=== PATIENT | female | born 1990 | race Caucasian/White ===

== ENCOUNTER 2022-06-10 10:03 | Emergency (ER) | payer BC, SELFPAY ==
[2022-06-10 10:06] VITALS: BP 145/91; PULSE 101; RESP 16; TEMP 37.1; O2SAT 99; BMI 18.8
--- NOTE | 2022-06-10 11:13 | ED_ITS ---
HPI - General Adult General Chief complaint: Skin/Abscess/Foreign Body Stated complaint: Abscess? Time Seen by Provider: 06/10/22 10:15 History of Present Illness HPI narrative: Patient complains of mildly painful lump in the rectal area that has developed over the last several days, no bleeding, it does itch, no nausea no vomiting no diarrhea no constipation no fever Related Data Previous Rx's Medication Instructions Recorded dibucaine 1 % topical ointment 1 appl topical QID PRN hemorrhoids 06/10/22 (Hemorrhoidal-Analgesic) #28 grams docusate sodium 100 mg capsule 100 mg PO BID PRN Stool softener 06/10/22 (Colace) #14 caps hydrocortisone 2.5 % topical cream 1 appl topical BID PRN itching #20 06/10/22 grams Allergies Allergy/AdvReac Type Severity Reaction Status Date / Time No Known Allergies Allergy Verified 06/10/22 10:09 [facility] Past Medical History Source: nursing notes reviewed Social History Social History Advance Directives: No Advance Directives Information Provided: No Physical Exam ED Vital Signs: Vital Signs - 24 hr 06/10/22 10:06 Temperature 98.7 F Pulse Rate 101 H Respiratory Rate 16 Blood Pressure 145/91 H Pulse Oximetry 99 Oxygen Delivery Method Room Air BMI result Body Mass Index 18.8 General appearance comfortable no distress The neck is supple Respiratory no distress Abdomen nontender Rectal exam external exam there is a swollen pinkish hemorrhoid, it is not black or purple there is no bleeding, there is no other swelling or tender area no ab scess Skin no rash Course Course Course Narrative: Patient with uncomfortable but not significantly painful swollen hemorrhoid is discharged with symptomatic treatment Discharge Plan Discharge Clinical Impression: Hemorrhoid Patient Disposition: Home, Self-Care Additional Instructions: You have a swollen external hemorrhoid, warm soaks in warm bath often help improve this Use ointments as prescribed, you can also get preparation H [id number] Use stool softener A follow with surgeon if needed but this usually gets better on its own in several days Return any time any worse condition or any concerns Prescriptions: New dibucaine [Hemorrhoidal-Analgesic] 1 % ointment 1 appl topical QID PRN (Reason: hemorrhoids) Qty: 28 0RF hydrocortisone 2.5 % cream 1 appl topical BID PRN (Reason: itching) Qty: 20 0RF docusate sodium [Colace] 100 mg capsule 100 mg PO BID PRN (Reason: Stool softener) Qty: 14 0RF Referrals: Maximino Pedersen MD [Physician] - (Hemorrhoids)
== END 2022-06-10 11:21 | disposition home or self-care (01) ==
PROVIDERS: Emergency Provider Emergency Medicine
DX: K64.9 Unspecified hemorrhoids (principal)
CPT/HCPCS: 99282; 99283

== ENCOUNTER 2024-10-30 07:24 | Outpatient (REF) | payer BC, SELFPAY ==
[2024-10-30 10:21] LABS: Appearance Urine Cloudy; Glucose Urine UA Negative (Negative); PH 5.5 (5.0-9.0); Specific Gravity - Urine 1.020 (1.005-1.025); UMIC TRIGGER UACC YES
[2024-10-30 10:22] LABS: MANUAL DIFF FLAG NO
[2024-10-30 10:34] LABS: Hematocrit 36.4 % (37.0-47.0); Hemoglobin 12.4 g/dl (12.0-16.0); Imm Gran Abs Auto 0.02 X10*3/uL (0.00-0.03); Imm Gran Pct Auto 0.3 % (0.0-0.4); Lymphocytes Absolute Auto 1.5 X10*3/uL (1.2-4.9); Mean Corpuscular HGB Conc 34.1 g/dl (31.0-35.0); Mean Corpuscular Hemoglobin 30.3 pg (27.0-33.0); Mean Corpuscular Volume 89.0 fL (80.0-98.0); NRBC Abs Auto 0.000 X10*3/uL (0.0-0.012); NRBC Pct Auto 0.0 /100WBC (0.0-0.2); Platelet Count 226 X10*3/uL (160-400); Red Blood Count 4.09 X10*6/uL (4.20-5.50); White Blood Count 6.2 X10*3/uL (4.8-10.8)
[2024-10-30 10:39] LABS: UACC Culture Trigger YES
[2024-10-30 10:52] LABS: Hemoglobin A1C 104.9077 umol/L; Total Hemoglobin (HGBA1C) 3337.2741 umol/L
[2024-10-30 11:16] LABS: Alanine Aminotransferase 92 U/L (0-31); Albumin Level 4.7 g/dL (3.5-5.0); Alkaline Phosphatase 70 U/L (39-117); Anion Gap 11 (12-20); Aspartate Amino Transferase 76 U/L (5-31); Blood Urea Nitrogen 11 mg/dL (9-16); Calcium 9.3 mg/dL (8.4-10.2); Carbon Dioxide 27 mmol/L (22-29); Chloride 103 mmol/L (96-108); Cholesterol 213 mg/dL (<200); Estimated Glomerular Filt Rate > 60; HDL Cholesterol 90 mg/dL (>40); Magnesium 1.8 mg/dL (1.6-2.6); Potassium 3.9 mmol/L (3.3-5.1); Sodium 137 mmol/L (135-145); Total Protein 7.5 g/dL (6.5-8.0); Triglycerides 115 mg/dL (<150)
[2024-10-30 11:32] LABS: Folate 11.2 ng/mL (> or = 4.0); Vitamin B12 484 pg/mL (200-900)
[2024-10-31 15:08] LABS: Lyme Abs Screen <0.90 index
== END 2024-10-30 07:25 | disposition home or self-care (01) ==
LOC: HO.HMGCLDS 07:24
PROVIDERS: PCP Physician Assistant Medical; Visit Provider Physician Assistant Medical
DX: Z00.00 Encounter for general adult medical examination without abnormal findings (principal); Z13.1 Encounter for screening for diabetes mellitus; Z13.220 Encounter for screening for lipoid disorders
CPT/HCPCS: 36415; 80053; 80061; 80076; 81001; 82248; 82306; 82607; 82746; 83036; 83735; 84443; 85025; 86140; 86617; 86618; 87086

== ENCOUNTER 2024-12-05 14:58 | Outpatient (AMB) | payer BC, SELFPAY ==
--- NOTE | 2024-12-05 15:07 | A.OFFPC_ITS ---
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 Blood Bank Required: No Accompanied by: Self / Same As Patient Allergies No Known Allergies Allergy (Verified 12/05/24 15:29) Medication List - Last Reconciled 12/05/24 by Iesha Villegas PA-C No Known Home Meds Tobacco use date assessed: 12/05/24 Dental Screening Dental Screen Date: 12/05/24 Did you have a dental visit in the last 12 months?: No Did you have a dental problem in the last 6 months where you did not have access to dental care?: No Was dental information given to patient?: Patient has dentist HPI Establish Care HPI Details The patient is a 34-year-old female presenting for a physical examination and evaluation of abdominal pain. The abdominal pain began recently and was described as a pinching sensation, with associated nausea and pressure-like discomfort. The pain has since resolved, and the patient is unsure if it was due to stress or a viral infection. The patient has a history of anemia, noted during blood work on October 30, 2024, with a hemoglobin level of 4.09 g/dL, which was slightly below the normal range. The anemia was suspected to be related to menstruation, and subsequent tests showed normal levels. The patient was found to have elevated liver enzymes, with levels of 76 and 92, prompting further investigation into potential causes such as gallbladder or pancreatic issues. An abdominal ultrasound was recommended to rule out gallstones or other abnormalities. The patient has a family history of breast cancer in her mother, diagnosed at age 38, and colon cancer in her grandfather. Preventative measures include referrals for a mammogram and colonoscopy due to this family history. Social History - Family status: Patient is the daughter of Shalini Simpson, who has a history of breast cancer. - Exercise: Patient engages in activitie s such as golfing. [facility] Medical History (Updated 12/05/24 @ 16:35 by Iesha Villegas PA-C) Preventative health care Pure hypercholesterolemia, unspecified Annual physical exam Left cervical lymphadenopathy Family history of colon cancer Family history of breast cancer in mother Elevated liver enzymes Abdominal pain General medical exam Family History Father BP (high blood pressure) Mother No problems noted. Social History Housing: Condominium Alcohol intake: current Alcohol intake frequency: a few times a week Patient Tobacco Use Status: Current someday Tobacco user service: No Current occupational status: employed Cognitive needs: No Hearing needs: No Vision needs: Yes (reading glasses) Questionnaire PHQ-9 Over the last 2 weeks, how often have you been bothered by any of the following problems? 1. Little interest or pleasure in doing things: not at all 2. Feeling down, depressed, or hopeless: not at all 3. Trouble falling or staying asleep, or sleeping too much: not at all 4. Feeling tired or having little energy: not at all 5. Poor appetite or overeating: not at all 6. Feeling bad about yourself - or that you are a failure or have let yourself or your family down: not at all 7. Trouble concentrating on things, such as reading the newspaper or watching television: not at all 8. Moving or speaking so slowly that other people could have noticed. Or the opposite - being so fidgety or restless that you have been moving around a lot more than usual: not at all 9. Thoughts that you would be better off or of hurting yourself in some way: not at all Total score: 0 Depression Screening Interpretation: Negative Depression Screening Done: Yes 97496 - PHQ-9 Billing: Yes Source: Developed by Drs. Sang Rossi, Flower Beyer, Neymar Coats and colleagues, with an educational odalys from [employer]. Thrive Questionnaire Date Thrive assessed: 12/05/24 I am a: Patient What is your living situation today?: I have a steady place to live Within the past 12 months, did the food you bought not last and you didn't have the money to get more?: Never true Within the past 12 months, did you worry whether your food would run out before you got money to buy more?: Never true Do you have trouble paying for medicines?: No Do you have trouble getting transportation to medical appointments?: No Do you have trouble paying your heating and electricity bill?: No Do you have trouble taking care of your child, family member or friend?: No Do you have trouble with day-to-day activities such as bathing, preparing meals, shopping, managing finances, etc.?: No Are you currently unemployed and looking for a job?: No Are you interested in more education?: No Please select the resources that you would like help with: None THRIVE Score: 0 AUDIT C Alcohol Use Questionnaire (AUDIT-C) 1. How often do you have a drink containing alcohol?: 2-3 times a week 2. How many drinks containing alcohol do you have on a typical day when you are drinking?: 1 or 2 3. How often do you have six or more drinks on one occasion?: Never Total Score: 3 Score Reviewed/Action Taken: No CRISTOBAL-7 AMB Questionnaire CRISTOBAL-7 Date CRISTOBAL - 7 assessed: 12/05/24 Feeling nervous, anxious, or on edge: 0 = Not at all Not being able to stop or control worryin = Not at all Worrying too much about different things: 0 = Not at all Trouble relaxin = Not at all Being so restless that it is hard to sit still: 0 = Not at all Becoming easily annoyed or irritable: 0 = Not at all Feeling afraid as if something awful might happen: 0 = Not at all Total CRISTOBAL-7 score (0-4 normal; 5-9 mild; 10-14 moderate; 15-21 severe): 0 Source: Developed by Drs. Sang Rossi, Flower Beyer, Neymar Coats and colleagues, with an educational odalys from [employer]. CRISTOBAL-7 Assessment Billing CRISTOBAL-7 Assessment Tool: CRISTOBAL-7 Assessment 28612 Review of Systems Const Details: - Gastrointestinal: Denies current abdominal pain, nausea, or changes in bowel habits. - Cardiovascular: Denies chest pain or palpitations. - Respiratory: Denies dyspnea or cough. - Neurological: Denies dizziness or headaches. - Genitourinary: Denies dysuria or hematuria. - Musculoskeletal: Reports soreness after golfing. - Dermatological: Denies rashes. All systems reviewed & are unremarkable except as noted in HPI and below Physical exam (Primary Care) Vital Signs: Last Vital Signs Temp 98.1 F 12/05/24 15:13 Pulse 72 12/05/24 15:13 Resp 14 12/05/24 15:13 BP 127/84 12/05/24 15:13 Pulse Ox 99 12/05/24 15:13 Oxygen Delivery Method Room Air 12/05/24 15:13 Care Plan Goal for BP management: <140/90 at Goal BMI result Body Mass Index 19.7 Normal BMI Tobacco/Smoking Status: Tobacco use Status Tobacco use date assessed 12/05/24 12/05/24 15:09 Patient Tobacco Use Status Current someday Tobacco 12/05/24 15:19 PHQ-9: PHQ-9 Score PHQ-9: Total score 0 12/05/24 15:19 Depression Screening Interpretation: Negative Thrive Assessment: Date of Thrive Assessment Date Thrive assessed 12/05/24 12/05/24 15:09 Const Other: Appearance: Alert. Oriented X3. No acute distress. Head: Normal external exam. Normocephalic. Atraumatic. Eyes: Pupils are equal, round, and reactive to light. Extraocular movements intact. Conjunctiva and sclera normal. Eyelids normal. Ears: External auditory canal normal. Tympanic membranes normal. Throat: Pharynx normal. Uvula midline. Moist mucous membranes. Neck: Normal inspection. Neck supple. Full range of motion. No adenopathy. Thyroid Normal. No meningeal signs. Single enlarged lymph node noted on the left side; ultrasound of left cervical lymphadenopathy ordered. Cardiovascular: Normal heart rate and rhythm. Heart sound normal. No murmurs noted. Pulses normal throughout. Respiratory: No respiratory distress. Painless inspiration. Breath sounds normal. No wheezes/rales/rhonchi noted. Chest nontender. No accessory muscle usage noted or decreased air movement noted. Abdomen: Soft and nontender. Bowel sounds normal in all 4 quadrants. No distention noted. No organomegaly noted. No visible injury noted. Back: No costovertebral angle tenderness. Full range of motion noted. Skin: Skin warm and dry. Normal skin color. Normal skin turgor. No rashes/lesions/lacerations noted. Extremities: No lower extremity edema. Extremities exhibit normal range of motion. Extremities nontender. Neuro: Oriented X 3. No motor deficit. No sensory deficit. Reflexes normal. Results Reviewed Results Reviewed: - Labs: Hemoglobin 4.09 g/dL (October 30, 2024), elevated liver enzymes (76 and 92), fasting glucose 104 mg/dL, hemoglobin A1c 5.0%. - Imaging: Abdominal ultrasound ordered to evaluate liver and gallbladder. Coding Level of Care Code New Pt Level 4 (86492) New Pt Prev Care 18-39yr(66792 Diagnoses Annual physical exam Z00.00 Abdominal pain R10.9 Elevated liver enzymes R74.8 Pure hypercholesterolemia, unspecified E78.00 Left cervical lymphadenopathy R59.0 Preventative health care Z00.00 Family history of colon cancer Z80.0 Family history of breast cancer in mother Z80.3 Additional Codes PHQ-9 - 93336 - PHQ-9 Billing: Yes ([id number]) CRISTOBAL-7 Assessment Billing - CRISTOBAL-7 Assessment Tool: CRISTOBAL-7 Assessment 74197 ([id number]) Assessment & Plan Assessment & Plan (1) Annual physical exam: Code(s): Z00.00 - Encounter for general adult medical examination without abnormal findings Category: Medical (2) Abdominal pain: Code(s): R10.9 - Unspecified abdominal pain Category: Medical Plan: The patient reported recent abdominal pain described as a pinching sensation, which has since resolved. An abdominal ultrasound has been ordered to evaluate for potential gallbladder or pancreatic issues, given the elevated liver enzymes . (3) Elevated liver enzymes: Code(s): R74.8 - Abnormal levels of other serum enzymes Category: Medical Plan: The patient has elevated liver enzymes, with levels of 76 and 92. An abdominal ultrasound is planned to assess for gallstones or other hepatic issues. Repeat liver function tests will be conducted to monitor enzyme levels. The patient has elevated liver enzymes, with levels of 76 and 92. An abdominal ultrasound is planned to assess for gallstones or other hepatic issues. Repeat liver function tests will be conducted to monitor enzyme levels. (4) Pure hypercholesterolemia, unspecified: Code(s): E78.00 - Pure hypercholesterolemia, unspecified Category: Medical Plan: The patient's cholesterol levels are slightly elevated. Lifestyle modifications are recommended, but no pharmacological intervention is planned at this time due to the patient's young age and overall health. (5) Left cervical lymphadenopathy: Code(s): R59.0 - Localized enlarged lymph nodes Category: Medical Plan: The patient has a single enlarged cervical lymph node. An ultrasound of the lymph node is ordered to further evaluate the cause of the enlargement. (6) Preventative health care: Code(s): Z00.00 - Encounter for general adult medical examination without abnormal findings Category: Medical Plan: Due to the family history of breast cancer, a mammogram referral has been made to assess for early detection and prevention. A referral for a colonoscopy has been made due to the family history of colon cancer, aiming for early detection and prevention. (7) Family history of colon cancer: Code(s): Z80.0 - Family history of malignant neoplasm of digestive organs Category: Medical Plan: A referral for a colonoscopy has been made due to the family history of colon cancer, aiming for early detection and prevention. (8) Family history of breast cancer in mother: Code(s): Z80.3 - Family history of malignant neoplasm of breast Category: Medical Plan: Due to the family history of breast cancer, a mammogram referral has been made to assess for early detection and prevention. Plan Plan Patient was informed and verbally consented to the use of an ambient scribe for clinic note documentation during this visit. 1. Abdominal Pain The patient reported recent abdominal pain described as a pinching sensation, which has since resolved. An abdominal ultrasound has been ordered to evaluate for potential gallbladder or pancreatic issues, given the elevated liver enzymes. 2. Anemia The patient was previously noted to have anemia with a hemoglobin level of 4.09 g/dL, likely related to menstruation. Follow-up labs showed normalization, and no further immediate action is required. 3. Elevated Liver Enzymes The patient has elevated liver enzymes, with levels of 76 and 92. An abdominal ultrasound is planned to assess for gallstones or other hepatic issues. Repeat liver function tests will be conducted to monitor enzyme levels. 4. Hypercholesterolemia The patient's cholesterol levels are slightly elevated. Lifestyle modifications are recommended, but no pharmacological intervention is planned at this time due to the patient's young age and overall health. 5. Lymphadenopathy The patient has a single enlarged cervical lymph node. An ultrasound of the lymph node is ordered to further evaluate the cause of the enlargement. 6. Preventative Care: Mammogram Referral Due To Family History Of Breast Cancer Due to the family history of breast cancer, a mammogram referral has been made to assess for early detection and prevention. 7. Preventative Care: Colonoscopy Referral Due To Family History Of Colon Cancer A referral for a colonoscopy has been made due to the family history of colon cancer, aiming for early detection and prevention. During the visit, I discussed with the patient the importance of monitoring her liver enzyme levels and the potential need for an abdominal ultrasound to rule out gallstones or other issues. We also talked about her slightly elevated cholesterol levels and the decision to focus on lifestyle modifications rather than medication at this time. I emphasized the significance of preventative care, given her family history of breast and colon cancer, and arranged referrals for a mammogram and colonoscopy. We agreed on a follow-up in three months to reassess her condition and review any new findings. Orders: Orders Complete Blood Count no Diff Today Z00.00 - Encounter for general adult medical examination without abnormal findings Amylase Today R10.9 - Unspecified abdominal pain, R74.8 - Abnormal levels of other serum enzymes UA CC w/rflx Micro + Cult Today R10.9 - Unspecified abdominal pain, R74.8 - Abnormal levels of other serum enzymes Hepatitis A,B,C Profile Today R10.9 - Unspecified abdominal pain, R74.8 - Abnormal levels of other serum enzymes US soft tiss head and/or neck Today R59.0 - Localized enlarged lymph nodes US abdomen complete Today R10.9 - Unspecified abdominal pain, R74.8 - Abnormal levels of other serum enzymes Comprehensive Met. Panel Today Z00.00 - Encounter for general adult medical examination without abnormal findings Liver Panel Today Z00.00 - Encounter for general adult medical examination without abnormal findings Lipase Today R10.9 - Unspecified abdominal pain, R74.8 - Abnormal levels of other serum enzymes MM screening mammo BI Today Z12.31 - Encounter for screening mammogram for malignant neoplasm of breast, Z80.3 - Family history of malignant neoplasm of breast Referrals Gastroenterology Referral Z12.11 - Encounter for screening for malignant neoplasm of colon, Z80.0 - Family history of malignant neoplasm of digestive organs Medications: Discontinued hydrocortisone 2.5% Discontinued Reason: Patient no longer taking 1 appl topical BID PRN 20 grams 0RF itching dibucaine 1% (Hemorrhoidal-Analgesic) Discontinued Reason: Patient no longer taking 1 appl topical QID PRN 28 grams 0RF hemorrhoids docusate sodium (Colace) Discontinued Reason: Patient no longer taking 100 mg PO BID PRN 14 caps 0RF Stool softener Patient Instructions: - Schedule and complete the abdominal ultrasound as ordered. - Follow up on the mammogram and colonoscopy referrals. - Maintain a healthy lifestyle to manage cholesterol levels. - Return for a follow-up appointment in three months.
[2024-12-05 15:13] VITALS: BP 127/84; PULSE 72; RESP 14; TEMP 36.7; O2SAT 99; BMI 19.7
--- OUTSIDE RECORDS SUMMARY | 2024-12-05 17:24 | XMS_ITS | Clinical Summary ---
Author Organization [facility] Address [address] [place] [address] [place] [id number] Phone Care Team Providers Care Pie Topper Name Role Phone Unknown, Unknown Primary Care Provider Unavai lable Allergies No known active allergies Medications hydrocortisone 2.5 % creamIndications :Rash and other nonspecific skin eruption Apply topically 2 (two) times a day. 28 g Active Active Problems No known active problems Immunizations Immunization Administration Dates Next Due COVID-19 (Pre-01/18) Moderna Vaccine, mRNA, PF 0 08/22/2020,07/25/2020 Social History Tobacco Use Types Packs/Day Years Used Date Smoking Tobacco: Never Assessed Education Answer Date Recorded Are you interested in more education? Not on meena e 07/26/2022 Are you concerned about learning? Not on file 07/26/2022 No 07/26/2022 No 07/26/2022 Digital Access Answer Date Recorded No 08/23/2022 No 08/23/2022 Reliable internet access at home? Not on file 08/23/2022 Device with a working camera? Not on file Comments Unknown Sex and Gender Information Value Date Recorded Sex Assigned at Female 11/10/2019 9:20 AM EDT Legal Sex Female 5:19 PM EST Gender Identity Female 11/10/2019 9:20 AM EDT Sexual Orientation Straight 11/10/2019 9: 20 AM EDT Plan of Treatment Health Maintenance Due Date Last Done Comments DEPRESSION SCREENING 2000 SMOKING Hx and SMOKELESS TOBACCO SCREENING 2001 HEPATITIS C SCREENING 2006 HIV ONE-TIME SCREENING (18-6 5 YEARS) 2006 PAP SMEAR 2009 Adult Td,Tdap Booster 07/13/2023 07/12/2013 , 10/28/1999 COVID-19 VACCINE (2023-2 5 season) 2023 08/22/2020, 07/25/2020 HIB VACCINES Completed 10/27/1989 MENINGOCOCCAL VACCINES (ACWY) Completed 09/22/2006 HEPATITIS A VACCINES Aged Out No long er eligible based on patient's age to complete this topic MENINGOCOCCAL VACCINES (B) Aged Out N o longer eligible based on patient's age to complete this topic PNEUMOCOCCAL VACCINES (0-49 years) Aged Out No longer eligible b ased on patient's age to complete this topic Medical Devices Not on file Insurance * Guarantor: Guillermina Stevens Account Type Relation to Patient Date of Phone Billing Address Personal/Family Self [address] [facility] * Guarantor: Guillermina Stevens Account Type Relation to Patient Date of Phone Billing Address Personal/Family Self [address] [place] [address] [facility] PPO EPO ([place]) [address] [facility] PPO EPO * Guarantor: Javedtawana Guillermina Account Type Relation to Patient Date of Phone Billing Address Personal/Family Self [address] [place], [place] [id number] [place] [address] [facility] PPO EPO * Guarantor: Davian Stevensra Account Type Relation to Patient Date of Phone Billing Address Personal/Family Self 1990 [address] [place], [place] [id number] [place] [address] [facility] PPO EPO * Guarantor: Guillermina Stevens Account Type Relation to Patient Date of Phone Billing Address Personal/Family Self [address] [place] [address] [facility] PPO EPO * Guarantor: Guillermina Stevens Account Type Relation to Patient Date of Phone Billing Address Personal/Family Self [address] [place] [address] [facility] PPO EPO * Guarantor: Guillermina Stevens Account Type Relation to Patient Date of Phone Billing Address Personal/Family Self [address] [facility] PPO EPO * Guarantor: Guillermina Stevens Account Type Relation to Patient Date of Phone Billing Address Personal/Family Self [address] [place], [place] [facility] PPO EPO Care Teams Pie Topper Relationship Specialty Start Date End Date Unknown, Unknown, PCP - General 01/29/17 Additional Source Comments The information contained in this document represents components of the legal health record. It is not the complete legal health record.[facility]
== END 2024-12-05 15:48 | disposition home or self-care (01) ==
LOC: HO.HMCSH 14:58
PROVIDERS: PCP Physician Assistant Medical; Visit Provider Physician Assistant Medical
DX: Z00.00 Encounter for general adult medical examination without abnormal findings (principal); R10.9 Unspecified abdominal pain; R74.8 Abnormal levels of other serum enzymes; E78.00 Pure hypercholesterolemia, unspecified; R59.0 Localized enlarged lymph nodes; Z80.0 Family history of malignant neoplasm of digestive organs; Z80.3 Family history of malignant neoplasm of breast

== ENCOUNTER → 2024-12-05 14:58 | Outpatient (BNVA) | payer BC, SELFPAY | PROVIDERS: PCP Physician Assistant Medical; Visit Provider Physician Assistant Medical | DX: Z00.00 Encounter for general adult medical examination without abnormal findings (principal); R10.9 Unspecified abdominal pain; D64.9 Anemia, unspecified; R74.8 Abnormal levels of other serum enzymes; E78.00 Pure hypercholesterolemia, unspecified; R59.0 Localized enlarged lymph nodes; Z80.0 Family history of malignant neoplasm of digestive organs; Z80.3 Family history of malignant neoplasm of breast | CPT/HCPCS: 96127 ==

== ENCOUNTER 2025-01-05 06:16 | Outpatient (REF) | payer BC, SELFPAY ==
[2025-01-05 10:20] LABS: Hematocrit 34.5 % (37.0-47.0); Hemoglobin 11.4 g/dl (12.0-16.0); Mean Corpuscular HGB Conc 33.0 g/dl (31.0-35.0); Mean Corpuscular Hemoglobin 30.0 pg (27.0-33.0); Mean Corpuscular Volume 90.8 fL (80.0-98.0); NRBC Abs Auto 0.000 X10*3/uL (0.0-0.012); NRBC Pct Auto 0.0 /100WBC (0.0-0.2); Platelet Count 305 X10*3/uL (160-400); Red Blood Count 3.80 X10*6/uL (4.20-5.50); White Blood Count 5.4 X10*3/uL (4.8-10.8)
[2025-01-05 10:31] LABS: Alanine Aminotransferase 28 U/L (0-31); Albumin Level 4.1 g/dL (3.5-5.0); Alkaline Phosphatase 68 U/L (39-117); Amylase 1247 U/L (28-100); Anion Gap 9 (12-20); Aspartate Amino Transferase 28 U/L (5-31); Blood Urea Nitrogen 11 mg/dL (9-16); Calcium 9.0 mg/dL (8.4-10.2); Carbon Dioxide 26 mmol/L (22-29); Chloride 108 mmol/L (96-108); Estimated Glomerular Filt Rate > 60; Lipase 25 U/L (8-78); Potassium 3.9 mmol/L (3.3-5.1); Sodium 139 mmol/L (135-145); Total Protein 6.5 g/dL (6.5-8.0)
[2025-01-05 11:05] LABS: HBS Num1 1.78 mIU/mL (0-7.99); HBc Num1 0.05 S/CO (0.00-0.79); HBsAGNum1 0.49 S/CO (0.00-0.99); Hepatitis A Antibody IgM 0.21 Index (0-0.79); Hepatitis B Surface Antigen Negative (Negative); ~HepC Num1 0.10 S/CO (0.00-0.79); ~Hepatitis A Antibody IgM Nonreactive (Nonreactive); ~Hepatitis B Surface Antibody NONREACTIVE (Nonreactive); ~Hepatitis C Antibody Nonreactive (Nonreactive)
[2025-01-05 11:09] LABS: Appearance Urine Clear; Glucose Urine UA Negative (Negative); PH 5.5 (5.0-9.0); Specific Gravity - Urine 1.015 (1.005-1.025)
== END 2025-01-05 06:17 | disposition home or self-care (01) ==
LOC: HO.HMGCLDS 06:16
PROVIDERS: PCP Physician Assistant Medical; Visit Provider Physician Assistant Medical
DX: Z00.00 Encounter for general adult medical examination without abnormal findings (principal); R74.8 Abnormal levels of other serum enzymes; R10.9 Unspecified abdominal pain; Z32.00 Encounter for pregnancy test, result unknown
CPT/HCPCS: 36415; 80053; 81003; 82150; 82248; 83690; 84702; 85027; 86704; 86706; 86709; 86803; 87340

== ENCOUNTER 2025-01-05 13:05 | Emergency (ER) | payer BC, SELFPAY ==
--- NOTE | ~2025-01-05 | US_ITS ---
EXAMINATION: US OBSTETRICAL ULTRASOUND CLINICAL INFORMATION: Positive test COMPARISON: None available. LMP: 12/05/2024. Gestational age by maternal dates is 4 weeks 3 days Estimated date of delivery by maternal dates is September 11, 2025. . TECHNIQUE: FINDINGS: Uterus measures 8.5 x 4.7 x 5.6 cm. Single intrauterine gestational sac. Mean sac diameter measures 1.12 cm suggesting gestational age of 5 weeks 6 days. No pole is seen. There is a yolk sac. There is no significant subchorionic hemorrhage or hematoma. MATERNAL ADNEXA: The right maternal ovary measures 4.8 x 2.7 x 3.3 cm. There is a 2.6 x 2.4 x 2.7 cm simple right ovarian cyst. The left maternal ovary measures 3.3 x 1.5 x 2 cm. No maternal pelvic ascites. US/US OB <= 14 weeks fetus IMPRESSION: 1. Single intrauterine gestation sac and yolk sac. No pole seen. Recommend correlation with beta hCG and follow-up OB ultrasound in one week. Electronically signed by: Agnes Gonzáles MD 01/05/2025 05:15 PM EDT
--- NOTE | ~2025-01-05 | US_ITS ---
EXAMINATION: US ABDOMEN LIMITED CLINICAL INFORMATION: Elevated amylase. COMPARISON: None available. TECHNIQUE: Real-time imaging of the right upper quadrant abdominal viscera. FINDINGS: PANCREAS: Visualized portions are unremarkable. LIVER: The liver is normal in size. The liver contour is normal. Parenchymal echogenicity is slightly increased.. Small cyst in the left lobe measuring 7 x 5 x 6 mm. There is no intrahepatic biliary duct dilatation seen. GALLBLADDER: The gallbladder is physiologically distended without evidence of stones, sludge, polyps, wall thickening or pericholecystic fluid. COMMON BILE DUCT: Normal in caliber measuring 0.2 cm in diameter. RIGHT KIDNEY: No hydronephrosis. No renal calculi or focal parenchymal lesions. The kidney measures 11 cm in maximum dimension. FREE FLUID: None. US/US abdomen limited IMPRESSION: Slightly echogenic liver. This most commonly represents fatty infiltration. Small cyst in the left lobe of the liver. Electronically signed by: Agnes Gonzáles MD 01/05/2025 05:10 PM EDT
[2025-01-05 13:25] VITALS: BP 175/94; PULSE 74; RESP 18; TEMP 36.3; O2SAT 100; BMI 19.3
--- NOTE | 2025-01-05 13:27 | ED_ITS ---
HPI - General Adult General Chief complaint: Recheck/Abnormal Lab/Rx Stated complaint: abnormal labs Time Seen by Provider: 01/05/25 14:36 History of Present Illness ED Provider: Dr. Aldrich HPI narrative: 34 y/o F patient; PMH HLD; presents from home on recommendation of PCP for an elevated amylase test. Patient had gone to PCP for an Hcg as she was concerned she may be approx 4 weeks . The patient is . She denies any complaints such as: fever or chills, nausea/vomiting/diarrhea, abdominal pain. Related Data Home Medications ?Medication ?Instructions ?Recorded ?Confirmed No Known Home Meds 12/05/24 12/05/24 Allergies Allergy/AdvReac Type Severity Reaction Status Date / Time No Known Allergies Allergy Verified 01/05/25 13:26 Review of Systems Review of Systems: Yes all other systems are reviewed and are negative [facility] Past Medical History Attestation statement: The following information was validated with the patient. Source: old records reviewed Medical History Preventative health care Pure hypercholesterolemia, unspecified Annual physical exam Left cervical lymphadenopathy Family history of colon cancer Family history of breast cancer in mother Elevated liver enzymes Abdominal pain General medical exam Family History Family History Father BP (high blood pressure) Mother No problems noted. Social History Social History Housing: [facility] Alcohol intake: current Alcohol intake frequency: a few times a week Patient Tobacco Use Status: Current someday Tobacco user Smoked in Last 30 Days: No Use of substances other than those prescribed or required for medical reasons: No Advance Directives: No Advance Directives Information Provided: Yes Patient : No service: No Current occupational status: employed Cognitive needs: No Hearing needs: No Vision needs: Yes (reading glasses) Physical Exam ED Vital Signs: Vital Signs - 24 hr 01/05/25 13:25 01/05/25 14:40 01/05/25 16:38 Temperature 97.4 F 98.3 F 98.4 F Pulse Rate 74 64 77 Respiratory Rate 18 20 20 Blood Pressure 175/94 H 137/83 146/94 H Pulse Oximetry 100 100 100 Oxygen Delivery Method Room Air Room Air Room Air BMI result Body Mass Index 19.3 Patient is afebrile and hemodynamically stable. Initially hypertensive on arrival but this improved well without intervention. Const General: cooperative and no acute distress Orientation/consciousness: patient oriented x3 HENMT Head: Yes normal to inspection and Yes atraumatic Eyes General: appearance normal, both eyes and all related structures Pupils: Equal, round and reactive pupils present EOM: EOMs intact bilaterally Neck Neck: Yes normal visual inspection, Yes full ROM, Yes supple and No tender Chest Chest palpation & inspection: normal inspection of the chest and normal palpation of entire chest wall Resp Effort & Inspection: normal respiratory effort, able to speak in complete sentences, no cough and no respiratory distress Auscultation: clear to auscultation bilaterally Cardio Rate: regular rate Rhythm: regular rhythm Peripheral pulses: Peripheral pulses 2+ throughout GI Inspection: Yes normal to inspection, No Abdominal wall edema and No distended Palpation (GI): Soft to palpation, not firm, nontender, no guarding and not rigid Auscultation: normal bowel sounds Back/Spine/Pelvis Back: No back tenderness Neuro General: patient oriented x3 Cranial nerves: Yes Equal, round and reactive pupils present Course Course Course Narrative: This is an RME: Additional HPI, ROS, PE not included below will be deferred to primary provider. RME assessment and note performed by: Blanca Verma PA-C This is a 34-year-old female who presents emergency department with abnormal labs. Patient reports that she just found out that she was , but she is approximately 4 weeks . She was also told that her amylase was elevated. Amylase is 1247[place] [address]. She is asymptomatic, no cramping, no vaginal discharge or bleeding. Reevaluation(s) Reevaluation #1: Patient is afebrile and hemodynamically [place] [address]. Pending triage ordered US. Amylase is a poor, non-specific test. Patient has no symptoms of anything GI. Her lipase and LFTs are within normal limits. No further interventions at this time. US Abdomen reviewed. Slightly echogenic liver. Most commonly represents fatty infiltration. Small cyst in the left lobe of the liver. US Pelvis with single intrauterine gestational sac with yolk sac, without pole yet. Consistent with approx 5 weeks 6 days. Plan: Discharge to home with OB and PCP follow up Return precautions given Medical Decision Making Radiology Impression Discussion of test interpretation with radiology: I have reviewed the radiologist's reading. Radiologist Impression: EXAMINATION: US ABDOMEN LIMITED CLINICAL INFORMATION: Elevated amylase. COMPARISON: None available. TECHNIQUE: Real-time imaging of the right upper quadrant abdominal viscera. FINDINGS: PANCREAS: Visualized portions are unremarkable. LIVER: The liver is normal in size. The liver contour is normal. Parenchymal echogenicity is slightly increased.. Small cyst in the left lobe measuring 7 x 5 x 6 mm. There is no intrahepatic biliary duct dilatation seen. GALLBLADDER: The gallbladder is physiologically distended without evidence of stones, sludge, polyps, wall thickening or pericholecystic fluid. COMMON BILE DUCT: Normal in caliber measuring 0.2 cm in diameter. RIGHT KIDNEY: No hydronephrosis. No renal calculi or focal parenchymal lesions. The kidney measures 11 cm in maximum dimension. FREE FLUID: None. US/US abdomen limited IMPRESSION: Slightly echogenic liver. This most commonly represents fatty infiltration. Small cyst in the left lobe of the liver. Electronically signed by: Agnes Gonzáles MD 01/05/2025 05:10 PM EDT DD/ /20/1614 TD/TT: 01/05/2501/20/1627 EXAMINATION: US OBSTETRICAL ULTRASOUND CLINICAL INFORMATION: Positive test COMPARISON: None available. LMP: 12/05/2024. Gestational age by maternal dates is 4 weeks 3 days Estimated date of delivery by maternal dates is September 11, 2025. . TECHNIQUE: FINDINGS: Uterus measures 8.5 x 4.7 x 5.6 cm. Single intrauterine gestational sac. Mean sac diameter measures 1.12 cm suggesting gestational age of 5 weeks 6 days. No pole is seen. There is a yolk sac. There is no significant subchorionic hemorrhage or hematoma. MATERNAL ADNEXA: The right maternal ovary measures 4.8 x 2.7 x 3.3 cm. There is a 2.6 x 2.4 x 2.7 cm simple right ovarian cyst. The left maternal ovary measures 3.3 x 1.5 x 2 cm. No maternal pelvic ascites. US/US OB <= 14 weeks fetus IMPRESSION: 1. Single intrauterine gestation sac and yolk sac. No pole seen. Recommend correlation with beta hCG and follow-up OB ultrasound in one week. Electronically signed by: Agnes Gonzáles MD 01/05/2025 05:15 PM EDT Discharge Plan Discharge Clinical Impression: Abnormal serum level of amylase, First trimester Patient Disposition: Home, Self-Care Instructions: (ED) Additional Instructions: You were seen in the emergency department today for an elevated amylase level. You had an US of your liver and your pelvis which I included below. I recommend you follow up with the OBGYN in the next 10 - 14 days for a repeat US to confirm intrauterine . Please return to the emergency department with any concerns! EXAMINATION: US OBSTETRICAL ULTRASOUND CLINICAL INFORMATION: Positive test COMPARISON: None available. LMP: 12/05/2024. Gestational age by maternal dates is 4 weeks 3 days Estimated date of delivery by maternal dates is September 11, 2025. . TECHNIQUE: FINDINGS: Uterus measures 8.5 x 4.7 x 5.6 cm. Single intrauterine gestational sac. Mean sac diameter measures 1.12 cm suggesting gestational age of 5 weeks 6 days. No pole is seen. There is a yolk sac. There is no significant subchorionic hemorrhage or hematoma. MATERNAL ADNEXA: The right maternal ovary measures 4.8 x 2.7 x 3.3 cm. There is a 2.6 x 2.4 x 2.7 cm simple right ovarian cyst. The left maternal ovary measures 3.3 x 1.5 x 2 cm. No maternal pelvic ascites. US/US OB <= 14 weeks fetus IMPRESSION: 1. Single intrauterine gestation sac and yolk sac. No pole seen. Recommend correlation with beta hCG and follow-up OB ultrasound in one week. Electronically signed by: Agnes Gonzáles MD 01/05/2025 05:15 PM EDT EXAMINATION: US ABDOMEN LIMITED CLINICAL INFORMATION: Elevated amylase. COMPARISON: None available. TECHNIQUE: Real-time imaging of the right upper quadrant abdominal viscera. FINDINGS: PANCREAS: Visualized portions are unremarkable. LIVER: The liver is normal in size. The liver contour is normal. Parenchymal echogenicity is slightly increased.. Small cyst in the left lobe measuring 7 x 5 x 6 mm. There is no intrahepatic biliary duct dilatation seen. GALLBLADDER: The gallbladder is physiologically distended without evidence of stones, sludge, polyps, wall thickening or pericholecystic fluid. COMMON BILE DUCT: Normal in caliber measuring 0.2 cm in diameter. RIGHT KIDNEY: No hydronephrosis. No renal calculi or focal parenchymal lesions. The kidney measures 11 cm in maximum dimension. FREE FLUID: None. US/US abdomen limited IMPRESSION: Slightly echogenic liver. This most commonly represents fatty infiltration. Small cyst in the left lobe of the liver. Electronically signed by: Agnes Gonzáles MD 01/05/2025 05:10 PM EDT Prescriptions: No Action No Known Home Meds Print Language: Nepali
[2025-01-05 14:40] VITALS: BP 137/83; PULSE 64; RESP 20; TEMP 36.8; O2SAT 100
[2025-01-05 16:38] VITALS: BP 146/94; PULSE 77; RESP 20; TEMP 36.9; O2SAT 100
[2025-01-05 18:26] VITALS: BP 146/94; PULSE 77; RESP 20; TEMP 36.9; O2SAT 100
== END 2025-01-05 18:26 | disposition home or self-care (01) ==
PROVIDERS: Emergency Provider Emergency Medicine; PCP Physician Assistant Medical
DX: R74.8 Abnormal levels of other serum enzymes (principal); O09.511 Supervision of elderly primigravida, first trimester
CPT/HCPCS: 76705; 76801; 99284

== ENCOUNTER → 2025-01-05 13:35 | Outpatient (BNV) | payer BC, SELFPAY | PROVIDERS: Emergency Provider Emergency Medicine; PCP Physician Assistant Medical; Visit Provider Radiology Diagnostic Radiology | DX: O36.80X0 Pregnancy with inconclusive fetal viability, not applicable or unspecified (principal); N83.291 Other ovarian cyst, right side; K76.0 Fatty (change of) liver, not elsewhere classified | CPT/HCPCS: 76705; 76801 ==